=== PATIENT | female | born 1955 | race Caucasian/White ===

== ENCOUNTER 2016-11-24 14:39 | Day surgery (SDC) | payer OTHER ==
[~2016-11-24] VITALS: Ht 157.5 cm; Wt 70.9 kg
[2016-11-24 15:41] VITALS: Ht 157.5 cm; Wt 70.9 kg
[2016-11-24] MEDS ORDERED: ASPIRIN PO (15:46)
[2016-11-24 16:16] VITALS: BP 119/67; PULSE 64; RESP 16
[2016-11-24] MEDS ORDERED: FENTAnyl 50 MCG/ML VIAL ONE (17:28)
[2016-11-24] MEDS ORDERED: MIDAZOLAM 1 MG/ML 2 ML INJ ONE (17:28)
[2016-11-24 17:45] VITALS: BP 104/66; PULSE 82; RESP 12
--- NOTE | 2016-11-25 06:46 | GILP ---
DATE OF PROCEDURE: 11/24/2016 NAME OF PROCEDURE: Colonoscopy. SURGEON: Ankita Irizarry MD PREOPERATIVE DIAGNOSIS: Screening colonoscopy. POSTOPERATIVE DIAGNOSES: 1. Colonoscopy all the way to the cecum. 2. Internal hemorrhoids. 3. Melanosis coli. 4. No colon neoplasm was identified. INDICATION FOR THE PROCEDURE: Ms. Divya Pyle is a 61-year-old female patient who was scheduled fo r screening colonoscopy. The procedure and possible complications were well explained to the patient. She understood and con sented to the procedure. DESCRIPTION OF PROCEDURE: Under the influence of fentanyl and Versed, the colonoscope was carefully introduced in the rectum and under direct vision it was advanced all the way to the cecum. FINDINGS: The patient had melanosis coli. She also had internal hemorrhoids. No colon neoplasm wa s identified. She tolerated the procedure very well and there was no complication from the procedure. At the end of the procedure she was awake with stable vital signs and she was discharged home to the care of he r family. IMPRESSION: 1. Colonoscopy all the way to the cecum. 2. Melanosis coli. 3. Internal hemorrhoids. 4. No colon neoplasm was identified. PLAN: Next screening colonoscopy in 10 years. Dictated By: ANKITA CALLAWAY/KAYKAY Conf#: [id number] DID#: [id number]
== END 2016-11-24 18:15 | disposition home or self-care (01) ==
LOC: GIL 14:39
PROVIDERS: ATTEND Internal Medicine Gastroenterology
DX: Z12.11 Encounter for screening for malignant neoplasm of colon (principal); K64.8 Other hemorrhoids; K63.89 Other specified diseases of intestine
CPT/HCPCS: 45378; J2250; J3010